=== PATIENT | female | born 1980 | race Caucasian/White ===

== ENCOUNTER 2016-08-28 18:42 | Inpatient (IN) ==
[2016-08-28] MEDS ORDERED: LR 1,000 ML IV SCH (19:30)
[2016-08-28] MEDS ORDERED: NS 1,000 ML IV ONE ×2 (19:38→20:56)
[2016-08-28] MEDS ORDERED: CITRIC ACID/SODIUM CITRATE 30ml PO ONE (19:53)
[2016-08-28] MEDS ORDERED: D5NS 1,000 ML IV SCH (21:47)
[2016-08-28] MEDS ORDERED: INSULIN REGULAR, HUMAN 100 UNIT in NS 100 ML IV PRN (22:04)
[2016-08-28] MEDS: ONDANSETRON 4 MG/2 ML INJECTION IVP PRN (22:45)
[2016-08-28] MEDS: D5NS IV SCH (23:56)
[2016-08-28] MEDS: POTASSIUM PHOSPHATE IV SCH (23:56)
[2016-08-28] MEDS: POTASSIUM CHLORIDE IV SCH (23:56)
--- NOTE | 2016-08-29 00:34 | History & Physical Report ---
History of Present Illness Date: 08/29/16 Chief complaint: Nausea & vomiting HPI: The pt is a 36 yo with a long history of medical noncompliance with her diabetes who presented to the ER c/o 2 weeks of nausea with intermetent vomiting but over the past 2 days the vomiting has become constant, not being able to keep and fluids down. She is 34 weeks with her third child and thus Dr. Bingham was notified of her condition in the ER. The patient explains to me that she stopped taking her insulin around 2 weeks ago due to poor PO intake and has not been checking her blood sugars regularly, but previously has been running >250. Her last A1C was 10.5, which is very good for her since she has been much higher in the past. Saw Dr. Pathak, endocrinology about 2-3 months ago. Review of Systems - Constitutional Constitutional: Present: anorexia, chills, fatigue, headache(s) - EENMT Eyes: Present: blurry vision, change in vision - Cardiovascular Cardiovascular: Absent: chest pain, palpitations, syncope, dyspnea on exertion - Respiratory Respiratory: Absent: cough, dyspnea, wheezing - Gastrointestinal Gastrointestinal: Present: abdominal pain, dyspepsia, early satiety. Absent: diarrhea - Genitourinary Genitourinary: Present: urinary frequency Menstruation: other - Musculoskeletal Musculoskeletal: Present: arthralgias, muscle cramps - Endocrine Endocrine: Present: flushing, heat intolerance PFS Patient Stated Medical History Diabetes Mellitus Type 1 Yes Herpes No Human Immunodeficiency Virus ( No HIV) Maternal Gestational Diabetes Yes Now Yes Surgical History: none Family History: 3 other family members with Diabetes. - Social History Smoking status: Current every day smoker Packs per day: 1 second hand exposure: Yes Substance use type: does not use Alcohol intake: former Medications Home Medications Medication Instructions Recorded Confirmed Type Insulin Glargine,Hum.rec.anlog 15 u SQ DAILY #0 02/12/12 History [Lantus] Insulin Lispro (Humalog) 5 u SQ AC #0 02/12/12 History Vits W-Ca,Fe,Fa(<1MG) 1 tab PO DAILY #0 02/12/12 History () Allergies Allergy/AdvReac Type Severity Reaction Status Date / Time medroxyprogesterone acetate Allergy Mild Uncoded 02/12/12 14:33 Exam Vital Signs: BP 133/75, HR 130, Temp- 37 Height: 1.6 m Weight: 80 kg Body Mass Index: 31.2 - Constitutional Present: moderate distress, well nourished - Routine Respiratory Exam Present: CTA bilaterally - Routine Cardiovascular Exam Present: RRR - Routine Abdominal Exam Present: soft Results - Labs CBC & Chem 7: 08/28/16 19:26 08/28/16 22:14 Assessment and Plan (1) DKA (diabetic ketoacidoses) Current visit: Yes Status: Acute 08/29/16 00:39 will start the pt on insulin continuous drip, monitor blood sugars Q1 hour, check BMP Q4, has received 3 liters of NS at this time, will transition to D51/ 2 NS as sugars decline, monitor K and electrolytes, The pt states she has been in DKA annually since diagnosis Assessment and Plan: 2. Dehydration- aggressive IVFluids, monitor closely, antiemetics. 3. - OB consulted and following closely, monitoring, 4. hx of STD Sepsis Assessment - Evaluation Sepsis screening result: No Definite Risk Hospital Course Summary Disclaimer: The visit summary below is not to be considered part of the above Progress Note.
[2016-08-29] MEDS: POTASSIUM PHOSPHATE IV SCH (07:03)
[2016-08-29] MEDS: POTASSIUM CHLORIDE IV SCH (07:03)
[2016-08-29] MEDS: D5NS IV SCH (07:03)
[2016-08-29] MEDS ORDERED: NS FLUSH BAG 500ml IV PRN (07:11)
[2016-08-29] MEDS ORDERED: INSULIN GLARGINE 100unit/ml INJECTION SQ ONE (08:01)
[2016-08-29] MEDS: ONDANSETRON 4 MG/2 ML INJECTION IVP PRN (09:55)
--- NOTE | 2016-08-29 11:50 | Progress Note ---
Subjective: Pt doing better this am. Denies any cp, f/c, sob. Reports mild nausea but is hungry and would like to try food. Objective Vital signs: Temp Pulse Resp BP Pulse Ox 98.6 F 84 18 114/62 96 08/29/16 09:00 08/29/16 09:15 08/29/16 09:15 08/29/16 09:15 08/29/16 09:15 Rhythm: Normal Sinus Rhythm Weight: 86.2 kg - Constitutional Present: no acute distress, well nourished - Routine Respiratory Exam Present: CTA bilaterally. Absent: respiratory distress - Routine Cardiovascular Exam Present: RRR, no murmur - Routine Abdominal Exam Present: soft, non tender - Routine Extremities Exam Present: edema. Absent: cyanosis, clubbing - Routine Skin Exam Present: intact, dry Results - Labs CBC & Chem 7: 08/28/16 19:26 08/29/16 06:59 Assessment and Plan (1) DKA (diabetic ketoacidoses) Current visit: Yes Status: Acute 08/29/16 00:39 will start the pt on insulin continuous drip, monitor blood sugars Q1 hour, check BMP Q4, has received 3 liters of NS at this time, will transition to D51/ 2 NS as sugars decline, monitor K and electrolytes, The pt states she has been in DKA annually since diagnosis Assessment and Plan: DKA -Likely 2/2 non-compliance, possibly made worse by n/v in -acidosis almost resolved, gap closed-->Will transition to subq insulin -Give lantus 20U this am and stop IV insulin and D5 in 2 hrs, will plan on taking lower dose of pt's home treciba tonight -Do 7-5-7 (instead of 10-8-10) novolog dosing WM -34 weeks, OB team following Sepsis Assessment - Evaluation Sepsis screening result: No Definite Risk - Focused Exam Vital Signs Temp Pulse Resp BP Pulse Ox 08/29/16 09:15 84 18 114/62 96 08/29/16 09:00 98.6 F 85 36 H 116/60 96 08/29/16 08:45 94 17 127/73 96 08/29/16 08:30 96 28 H 125/72 97 08/29/16 08:15 92 22 123/72 97 08/29/16 08:00 96 20 123/72 97 06/1717 07:45 103 H 26 H 120/65 97 17/17 07:30 107 H 17 128/76 97 17/17 07:15 86 19 120/65 94 17/17 07:00 80 21 119/66 95 17/17 06:45 87 19 118/70 95 17/17 06:40 88 21 116/73 95 17/17 06:30 93 19 95 17/17 06:15 93 38 H 96 17 06:00 96 20 17 05:45 110 H 24 123/69 97 17/17 05:30 95 18 119/66 93 08/29/17 05:15 92 18 94 1717 05:00 95 18 118/69 94 17/17 04:45 107 H 15 125/80 93 17 04:31 90 18 120/79 96 17 04:30 112 H 30 H 96 17 04:15 85 19 117/67 95 17 04:00 97.9 F 86 25 H 119/64 94 17/17 03:45 87 24 126/68 95 17/17 03:30 88 21 112/63 95 17/17 03:15 86 16 120/70 95 08/29/17 03:00 99 17 128/92 H 97 17 02:45 100 16 118/71 97 17/17 02:30 104 H 19 124/75 96 1717 02:15 97 15 124/80 98 17 02:00 100 17 149/75 H 97 1717 01:45 97 17 148/92 H 98 1717 01:30 89 21 121/58 95 17/17 01:29 87 20 119/56 95 17/17 01:15 93 20 95 17/17 01:03 100 17 01:00 97 16 96 1717 00:45 103 H 20 95 0617/17 00:30 104 H 19 94 17/17 00:15 101 H 19 94 1717 00:01 98 18 135/80 96 17 00:00 97.7 F 101 H 21 95 08/28/16 23:46 119 H 25 H 140/67 H 99 08/28/16 23:45 117 H 23 98 Respiratory exam: Present: CTA bilaterally Cardiovascular exam: Present: RRR Capillary refill: < 2-3 Seconds Hospital Course Summary Disclaimer: The visit summary below is not to be considered part of the above Progress Note. Hospital Course: 08/29/16 11:50 Pt admitted overnight for DKA, doing much better. Will transition to subq insulin and start diet. OB team following. Possibly discharge tomorrow.
[2016-08-29] MEDS ORDERED: CALCIUM CARBONATE Chewable 500mg TABLET PO PRN (11:54)
[2016-08-29] MEDS ORDERED: INSULIN ASPART 100unit/ml INJECTION SQ SCH ×5 (12:00→21:35)
[2016-08-29] MEDS ORDERED: POLYETHYL GLYCOL 3350 17gm PACKET PO PRN (12:23)
[2016-08-29] MEDS: OMEPRAZOLE 20 MG CAPSULE PO SCH ×2 (12:29→17:59)
[2016-08-29] MEDS: DOCUSATE SODIUM 100 MG CAPSULE PO SCH ×2 (12:29→22:32)
[2016-08-29] MEDS ORDERED: SALINE FLUSH 10ml SYRINGE IV PRN (12:41)
[2016-08-29] MEDS ORDERED: NS 1,000 ML IV SCH (12:54)
[2016-08-29] MEDS: SUCRALFATE 1gm/10ml ORAL LIQUID PO SCH ×2 (13:29→17:50)
[2016-08-29] MEDS ORDERED: TRESIBA FLEX TOUCH SQ SCH (22:00)
[2016-08-30] MEDS: SUCRALFATE 1gm/10ml ORAL LIQUID PO SCH ×2 (01:02→07:04)
[2016-08-30] MEDS: OMEPRAZOLE 20 MG CAPSULE PO SCH (07:02)
[2016-08-30] MEDS ORDERED: INSULIN ASPART 100unit/ml INJECTION SQ SCH ×2 (08:00)
--- NOTE | 2016-08-30 09:02 | Progress Note ---
Subjective: Pt doing well, reports she feels back to baseline. Denies any cp, sob, n/v/d, f/ c. Tolerating meals great. Objective Vital signs: Temp Pulse Resp BP Pulse Ox 98.7 F 80 18 126/78 96 08/30/16 07:00 08/30/16 07:00 08/30/16 07:00 08/30/16 07:00 08/29/16 21:48 Rhythm: Normal Sinus Rhythm Weight: 86.2 kg - Constitutional Present: no acute distress, well nourished - Routine HEENT Exam Head: Present: normocephalic, atraumatic Eye: Present: EOMI - Routine Respiratory Exam Present: CTA bilaterally - Routine Cardiovascular Exam Present: RRR, no murmur - Routine Abdominal Exam Present: soft, distended - Routine Extremities Exam Present: edema. Absent: cyanosis, clubbing - Routine Skin Exam Present: intact, dry - Routine Neurological Exam Present: alert, oriented X3 Results - Labs CBC & Chem 7: 08/30/16 04:39 08/30/16 04:39 Assessment and Plan (1) DKA (diabetic ketoacidoses) Current visit: Yes Status: Acute 08/29/16 00:39 will start the pt on insulin continuous drip, monitor blood sugars Q1 hour, check BMP Q4, has received 3 liters of NS at this time, will transition to D51/ 2 NS as sugars decline, monitor K and electrolytes, The pt states she has been in DKA annually since diagnosis Assessment and Plan: DKA -Resolved -Likely 2/2 non-compliance, possibly made worse by n/v in -tolerating PO intake well, subq transition went well -Ok to discharge from medicine standpoint, would recommend going home on home regimen of insulin that pt was on before -Advised pt to monitor glucose levels closely and to always take some long acting insulin even if she is not eating as she is type I and needs basal insulin -34 weeks, OB team following Sepsis Assessment - Evaluation Sepsis screening result: No Definite Risk - Focused Exam Vital Signs Temp Pulse Resp BP Pulse Ox 08/30/16 07:00 98.7 F 80 18 126/78 08/29/16 21:48 97.6 F 78 18 122/67 96 Respiratory exam: Present: CTA bilaterally Cardiovascular exam: Present: RRR Capillary refill: < 2-3 Seconds Hospital Course Summary Disclaimer: The visit summary below is not to be considered part of the above Progress Note. Hospital Course: 08/29/16 11:50 Pt admitted overnight for DKA, doing much better. Will transition to subq insulin and start diet. OB team following. Possibly discharge tomorrow. 08/30/16 09:02 Pt doing well, ok to discharge from medicine standpoint. Pt can resume home dose of insulin when she leaves.
--- NOTE | 2016-08-30 10:52 | Discharge Summary ---
Discharge Plan - Med Rec/Dispo Prescriptions: New Docusate Sodium [Colace] 100 mg PO BID #30 cap Sucralfate Oral Liq [Carafate Slurry] 1 gm PO ACHS #20 CALCIUM CARBONATE Chewable [Tums] 1,000 mg PO PRN PRN PRN Reason: Dyspepsia Insulin Aspart [NovoLOG] 5 unit SQ WB vial Continue Insulin Degludec [Tresiba Flextouch U-200] 40 units SQ HS Pnv No.95/Ferrous Fum/Folic AC [ Tablet] 1 each PO DAILY No Action Insulin Aspart [NovoLOG] 10 units SQ AC15 Acetaminophen [Acetaminophen Extra Strength] 500 mg PO PRN - Disposition 01 Discharged Home, Self-Care
--- NOTE | 2016-08-31 08:02 | Progress Note ---
This is a 36-year-old white female G6, P2, at 34.3 weeks gestational age. She is a known insulin-dependent diabetic who has been seeing Dr. Powell for care. She called me earlier this evening stating that she had not felt the baby move for two days. She also has not been able to keep anything down and is having nausea and vomiting for the last two days. She denied any fever. I asked her to immediately come in to Labor and Delivery to be evaluated. Upon her arrival I asked the charge nurse to immediately put her on the monitor and give me an Accu-Chek. I was outside the hospital but remoted in and saw the screen before the charge nurse had called me, so I called the nurse and found out her blood sugar was 301, so I headed towards the hospital. We started an IV and ordered a CMP, CBC, hemoglobin A1c, and a UA. I attempted to get hold of Dr. Pathak twice, and after the second page he called me back. He is unavailable to come up to manage the patient this evening but gave me some starting orders. I consulted the hospitalist. Since it was after 7 p.m., the hospitalist will now be involved. I talked to one of them personally on the phone and gave the history I had so far of them. My concern is DKA. The CO2 came back low at 10 and anion gap is high at 22, so I think this confirms a DKA scenario. Initially I had them get an IV going with LR, which is our usual but I did not bolus that. She just got a little of that before I switched to normal saline with the advice of Dr. Pathak and we are bolusing that. That is currently in place. CBC is still pending at this point in time. heart tones initially were nonreactive and with decreased variability, but they are improving with the fluids. The hospitalist has been consulted and is supposed to be reviewing her lab, and then we will be calling in to doctor. Further history with the patient tells me that she has not seen Dr. Pathak, the system integration engineer, in two months. She also cannot eat, sleep, or drink. I told the patient then that I think she is in DKA. She will certainly be spending some time in the hospital until we can get things straightened around on her. Questions were answered to her and her mother's satisfaction at this point in time. MTDD
--- NOTE | 2016-08-31 08:14 | Progress Note ---
Patient is currently in the ICU room 5. She is on continuous monitoring. Her most recent blood sugar at 2200 hours was 208. The hospitalist now has access to the chart and is able to put in electronic orders. She has been on an insulin drip of 5. It has been decreased to 4. She has received 2 liters of normal saline in a fairly bolus fashion and now has been switched to D5 normal saline at 150cc/hour. Her nausea has improved but is not completely resolved. She has voided once and urine showed 3+ ketones, 2+ sugar, and trace protein. Specific gravity is high. This is all consistent with dehydration, no p.o. intake for several days, and ketoacidosis with sugars as high as they were. So her blood sugars come from 326 down to 208. heart tones-- contractions have dissipated and late's have resolved. There is good variability now. I have audibly heard movements. We have her on continuous monitoring in the ICU, but that does not go to central monitoring so we cannot see it anywhere other than on the monitor strip that is being produced. Therefore, we have placed a Maternal Child nurse sitting in the ICU room to monitor heart tones and make sure that the baby stays stable. There is also an ICU nurse running her other issues. The tele-hospitalist is running the DKA, and I will continue to manage the . At this point, I think we are stable enough that emergent is much less likely. Things have improved markedly after 2 liters of normal saline. We will continue to closely monitor however. Questions were answered to the patient's satisfaction. She was asking about her hemoglobin A1c, and it was 10.0. She says their goal was 8.0. The hospitalist is status doing metabolic profiles every four hours, so that will be coming up soon. RODOLFO
--- NOTE | 2016-08-31 08:16 | Progress Note ---
DATE: 08/30/2016 This in an OB patient of Dr. Powell who was admitted two days ago in A. She is doing much better today and desires dismissal. The hospitalist feels that she can be dismissed from the medical standpoint. NST this morning is reactive. I saw the patient twice yesterday in the ICU and gave her additional IV fluids yesterday, but she was looking much improved yesterday and she came out to the floor yesterday afternoon and then this morning looks great. She is eating and drinking okay. She is voiding better than she has been although her urine is still dark. She is still having some swelling in her feet but her legs have resolved in her swelling. Her vital signs are stable. She is afebrile. Her blood sugars have improved markedly. Today they are 196, but yesterday during the day they were 114, 124 and 183 and last night was 241. So the patient desires to be discharged to home today and I will work to make that happen. She has a followup appointment tomorrow in our office. I will also dictate a discharge summary. RODOLFO
--- NOTE | 2016-08-31 10:30 | Discharge Summary ---
This is a 36-year-old white female in third trimester is known type 1 insulin dependent diabetic. She has been seeing Dr. Powell for the and a repeat was planned. She called me Wednesday afternoon complaining of nausea, vomiting, and not eating or drinking or sleeping for the past several days. She also hadn't felt the baby move for two days. I asked her to immediately come to Labor and Delivery. When she showed up, she was found to be in diabetic ketoacidosis. Blood sugar was 326. Lab was consistent with DKA as well. Her anion gap was 22 and her carbon dioxide was 10. Normal saline fluid boluses were started and Dr. Pathak was contacted by phone. He is her medical oncologist, but she has not seen him in over 2-1/2 months. He gave me some initial orders to start with but he was unavailable to come in this weekend , so I consulted the hospitalist. It was after 7:00 p.m., so tele-hospitals were consulted. Insulin drip was started. We transferred the patient to ICU. The patient spent Wednesday night in the ICU on an insulin drip with hourly blood sugars, lab q 4 hrs and DKA protocol. heart tones initially were nonreactive with late decelerations on admission. They improved some with hydration but would occasionally go back to non-reassuring. I made the decision to wait until we could resuscitate the mother and not move towards immediately delivering since we were a 34-1/2-week situation. Eventually heart tones became reactive when we got the mother's blood sugar down and her hydration up. They have remained reactive through discharge. Today from the hospitalist standpoint, they were ready to discharge to home. The patient also had bad gastric reflux and we have controlled that with Prilosec and Carafate. Will continue those. She has an appointment in our office tomorrow for a biophysical profile. Her delivery is scheduled for September 16 at this point in time. Questions were answered to her and her mother's satisfaction. The hospitalists have asked that she keep on her same insulin regimen that she had prior but to keep hydrated and to let us know sooner if she stops eating or drinking. She is to follow up with Dr. Pathak. Questions were answered to everyone's satisfaction. We have a followup appointment for tomorrow. heart tones were reactive and we are dismissing to home. MTDD
== END 2016-08-30 11:12 | disposition home or self-care (01) | DRG 638 ==
LOC: OBOBS 18:42 → MC 18:43 → CCU 20:52 → MC 08-29 16:15
PROVIDERS: ADMIT Obstetrics & Gynecology; ATTEND Obstetrics & Gynecology

== ENCOUNTER 2016-09-16 05:35 | Inpatient (IN) ==
[2016-09-16] MEDS ORDERED: NOZIN NASAL SWAB NAS ONE ×2 (05:49→09:00)
[2016-09-16] MEDS: LR 1,000 ML IV SCH ×2 (06:13→07:38)
[2016-09-16] MEDS ORDERED: FAMOTIDINE PB 20 MG/50 ML BAG IV ONE (06:30)
--- NOTE | 2016-09-16 06:54 | Anesthesia Preoperative Report ---
Anesthesia Preoperative Record - Date and Time Date: 09/16/16 Preoperative Diagnosis: High risk O09.893 Proposed Procedure: Repeat NPO Since Date: 09/16/16 NPO Since Time: 05:00 (6 oz Coffee without cream/sugar) Allergies/Adverse Reactions: Allergies Allergy/AdvReac Type Severity Reaction Status Date / Time No Known Drug Allergies Allergy Verified 08/29/16 08:45 medroxyprogesterone AdvReac Intermediate Bleeding Verified 08/29/16 08:45 - Vital Signs Vital Signs: Temperature 97.4 F 09/16/16 06:17 Pulse Rate 93 09/16/16 06:17 Respiratory Rate 18 09/16/16 06:17 Blood Pressure 140/97 H 09/16/16 06:17 Pulse Oximetry 97 09/16/16 06:17 Oxygen Delivery Method Room Air Height and Weight: Height 5 ft 3 in Weight 88.451 kg - Medications Inpatient Medications: Current Medications Citric Acid/Sodium Citrate (Oracit) 30 ml PO PREOP ONE Stop: 09/16/16 07:01 Cefazolin Sodium/Dextrose (Kefzol Premix (Mc Only)) 2 gm in 50 mls @ 100 mls/ hr IV PREOP ONE Stop: 09/16/16 07:29 Famotidine/Sodium Chloride (Pepcid Premix) 20 mg in 50 mls @ 100 mls/hr IV PREOP ONE Stop: 09/16/16 06:59 Last Admin: 09/16/16 06:14 Dose: 100 mls/hr Lactated Ringer's (Lactated Ringers) 1,000 mls @ 150 mls/hr IV .[id number] [facility] Last Admin: 09/16/16 06:13 Dose: 150 mls/hr Isopropyl Alcohol (Nozin Nasal Swab) 1 each OCHOA O ONE Stop: 09/16/16 09:01 Isopropyl Alcohol (Nozin Nasal Swab) 1 each OCHOA 0600,1400,2200 [facility] Home Medications: Home Medications Medication Instructions Recorded Confirmed Type Acetaminophen [Acetaminophen Extra 500 mg PO PRN 08/29/16 08/29/16 History Strength] Insulin Aspart [NovoLOG] 10 units SQ AC15 08/29/16 08/29/16 History Insulin Degludec [Tresiba 40 units SQ HS 08/29/16 08/29/16 History Flextouch U-200] Pnv No.95/Ferrous Fum/Folic AC 1 each PO DAILY 08/29/16 08/29/16 History [ Tablet] - Medical History Respiratory: Reports: Bronchitis (chronic), Other (smoker) Cardiovascular: Reports: Other (heart surgery as a baby. does not see a internal control analyst now. no problems) Gastrointestional: Reports: Nausea or Vomiting Present (nauseous currently), Gastroesophageal Reflux Disease (when ) Neuro/Musculoskeletal: Denies: HX.MS.OSAR, Back Problems, Cerebrovascular Accident, Depression, Headaches, Loss of Consciousness, Muscle Weakness, Neuromuscular Disorder, Paralysis, Paresthesia, Syncope, Seizures, Other Renal/Endocrine: Reports: Diabetes Mellitus Type 1 (chronic. 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") Other History: Reports: Now - Surgical History Reproductive Surgery/Treatment: Reports: Breast Augmentation/Reduction ( reduction 2008), Section - Social History Smoking Status: Current every day smoker (0.5-1PPD x 15+ yrs) Time spent discussing smoking cessation with patient: 3 to 10 minutes Substance Use Type: does not use - Pertinent Findings Laboratory: CBC and BMP 09/16/16 06:15 EKG Rhythm: Normal Sinus Rhythm - Physical Exam Respiratory Exam: Present: lungs clear (left lung), wheezing (Right lower lobe) , bilateral breath sounds equal Cardiovascular Exam: Present: regular rate and rhythm, no murmur - Airway Assessment Mallampati Score: II TMD: 3 Fingerbreadths Neck Extension: fair Teeth: poor dentation Overall Assessment: may be difficult intubation - ASA ASA Score: 3 - Plan Anesthesia: Neuroaxial Regional/Trunk Block: Spinal - Discussion Discussion: Discussed risks/options/alternatives of anesthesia and questions answered. Patient consents. Nursing pain assessment noted. Present for Discussion: parent Attestation Statement: Prior to the delivery of any anesthetic medication, I examined the patient, developed the plan, obtained the patient's consent and discussed the risk and benefits of the procedure with the patient/guardian. - Additional Information Seen by Anesthesia: Yes
[2016-09-16] MEDS ORDERED: NALOXONE 2 MG/2 ML INJECTION PFS IVP PRN (06:59)
[2016-09-16] MEDS ORDERED: ONDANSETRON 4 MG/2 ML INJECTION IVP PRN (06:59)
[2016-09-16] MEDS ORDERED: DiphenhydrAMINE 50 MG/ML INJECTION IVP PRN (06:59)
--- NOTE | 2016-09-16 06:59 | Anesthesia Preoperative Report ---
Anesthesia Epidural/Spinal Rec - Date and Time Date: 09/16/16 Preoperative Diagnosis: term labor/IDDM Procedure: Plan: Spinal - Vital Signs Vital Signs: Temperature 97.4 F 09/16/16 06:17 Pulse Rate 93 09/16/16 06:17 Respiratory Rate 18 09/16/16 06:17 Blood Pressure 140/97 H 09/16/16 06:17 Pulse Oximetry 97 09/16/16 06:17 Oxygen Delivery Method Room Air NPO since: 0500, 6oz black coffee /Para: P:2 Heart Rate: 130 - Medictaions & Allergies Inpatient Medications: Current Medications Citric Acid/Sodium Citrate (Oracit) 30 ml PO PREOP ONE Stop: 09/16/16 07:01 Cefazolin Sodium/Dextrose (Kefzol Premix (Mc Only)) 2 gm in 50 mls @ 100 mls/ hr IV PREOP ONE Stop: 09/16/16 07:29 Famotidine/Sodium Chloride (Pepcid Premix) 20 mg in 50 mls @ 100 mls/hr IV PREOP ONE Stop: 09/16/16 06:59 Last Admin: 09/16/16 06:14 Dose: 100 mls/hr Lactated Ringer's (Lactated Ringers) 1,000 mls @ 150 mls/hr IV .Q6H40M SURENDRA Last Admin: 09/16/16 06:13 Dose: 150 mls/hr Isopropyl Alcohol (Nozin Nasal Swab) 1 each OCHOA O ONE Stop: 09/16/16 09:01 Isopropyl Alcohol (Nozin Nasal Swab) 1 each OCHOA 0600,1400,2200 [facility] Allergies/Adverse Reactions: Allergies Allergy/AdvReac Type Severity Reaction Status Date / Time No Known Drug Allergies Allergy Verified 08/29/16 08:45 medroxyprogesterone AdvReac Intermediate Bleeding Verified 08/29/16 08:45 - Home Medications Home Medications: Home Medications Medication Instructions Recorded Confirmed Type Acetaminophen [Acetaminophen Extra 500 mg PO PRN 08/29/16 08/29/16 History Strength] Insulin Aspart [NovoLOG] 10 units SQ AC15 08/29/16 08/29/16 History Insulin Degludec [Tresiba 40 units SQ HS 08/29/16 08/29/16 History Flextouch U-200] Pnv No.95/Ferrous Fum/Folic AC 1 each PO DAILY 08/29/16 08/29/16 History [ Tablet] - Medical History Respiratory: Reports: Bronchitis (chronic), Other (smoker) Cardiovascular: Reports: Hypertension, Other (valve problem as a , fixed. 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) Other History: Reports: Now - Social History Smoking Status: Current every day smoker Second Hand Exposure: Yes Time spent discussing smoking cessation with patient: 3 to 10 minutes Substance Use Type: does not use - Pertinent Findings Lab Data: CBC and BMP 09/16/16 06:15 EKG Rhythm: Normal Sinus Rhythm - Physical Exam Respiratory Exam: lungs clear (left lung), wheezing (Right lower lobe), bilateral breath sounds equal Cardiovascular Exam: regular rate and rhythm, no murmur - Airway Assessment Mallampati Score: II TMD: 3 Fingerbreadths Neck Extension: fair Teeth: poor dentation Overall Assessment: may be difficult intubation - ASA ASA Score: 3 - Discussion Discussion: Discussed risks/options/alternatives of anesthesia and questions answered. Patient consents. Nursing pain assessment noted. Anesthesia Discussion: parent Attestation Statement: Prior to the delivery of any anesthetic medication, I examined the patient, developed the plan, obtained the patient's consent and discussed the risk and benefits of the procedure with the patient/guardian.
[2016-09-16] MEDS ORDERED: CITRIC ACID/SODIUM CITRATE 30ml PO ONE (07:00)
[2016-09-16] MEDS ORDERED: CEFAZOLIN PREMIX (MC ONLY) 2 GM/50 ML BAG IV ONE (07:00)
[2016-09-16] MEDS ORDERED: MORPHINE SULFATE PF 5mg/10ml INJ (Duramorph) ONE (07:05)
[2016-09-16] MEDS ORDERED: FentaNYL 100 MCG/2 ML INJECTION ONE (07:05)
[2016-09-16] MEDS ORDERED: OXYTOCIN DRIP 30 UNIT/500 ML ML IV SCH ×2 (07:45→09:00)
[2016-09-16] MEDS ORDERED: ONDANSETRON 4 MG/2 ML INJECTION ONE (08:26)
[2016-09-16] MEDS ORDERED: SALINE FLUSH 10ml SYRINGE IVF PRN (09:00)
[2016-09-16] MEDS ORDERED: SIMETHICONE 80 MG CHEWABLE TABLET PO PRN (09:00)
[2016-09-16] MEDS ORDERED: DiphenhydrAMINE 25 MG CAPSULE PO PRN (09:00)
[2016-09-16] MEDS ORDERED: HYDROCORTISONE 2.5% CREAM 30gm RECTALLY PRN (09:00)
[2016-09-16] MEDS ORDERED: CALCIUM CARBONATE Chewable 500mg TABLET PO PRN (09:00)
[2016-09-16] MEDS: D5LR 1,000 ML IV SCH ×2 (09:02→21:56)
[2016-09-16] MEDS: ACETAMINOPHEN 500 MG TABLET PO PRN ×2 (10:38→19:29)
[2016-09-16] MEDS: IBUPROFEN 800 MG TABLET PO SCH ×3 (10:38→19:29)
[2016-09-16] MEDS: DOCUSATE CALCIUM 240 MG CAPSULE PO SCH (10:39)
[2016-09-16] MEDS: SIMETHICONE 80 MG CHEWABLE TABLET PO SCH ×3 (10:40→19:30)
[2016-09-16] MEDS ORDERED: INSULIN ASPART 100unit/ml INJECTION SQ SCH ×2 (12:55→17:00)
[2016-09-16] MEDS ORDERED: NOZIN NASAL SWAB NAS SCH (14:00)
--- NOTE | 2016-09-16 14:47 | Operative Note ---
DATE OF PROCEDURE 09/16/2016 PREOPERATIVE DIAGNOSIS 1. Term . 2. Previous x 1. 3. Undesired fertility. 4. Type 1 insulin dependent diabetes. 5. Polyhydramnios. 6. LGA. POSTOPERATIVE DIAGNOSIS Same, delivered. PROCEDURE Repeat low transverse section, bilateral tubal ligation (modified Bessie). SURGEON Sherry Powell MD [employer] Aaron León, [employer] ANESTHESIA Combo spinal-epidural - Piyush Skelton APRN EBL 800 ml DESCRIPTION OF PROCEDURE Ms. Pace was brought to the OR and given regional analgesia to good effect. She was then placed on the OR table in a comfortable supine position with left lateral displacement. A Johnson catheter was placed to dependent drain. The abdomen was prepped and draped in the usual sterile fashion. A Pfannenstiel still skin incision was made. This was carried down to fascia. Fascia was then incised transversely. Fascia was then tented up. It was bluntly and sharply dissected free of the rectus muscles. Rectus muscles were bluntly divided. Peritoneum was tented up and sharply entered. This was then extended vertically. The bladder blade was inserted. The vesicouterine fold of peritoneum was tented up and incised transversely and a bladder flap bluntly created. The bladder blade was then reinserted. A low transverse uterine incision was made with a sharp knife. There was copious clear amniotic fluid consistent with her polyhydramnios. Baby was delivered in the vertex presentation without difficulty. Baby was bulb suctioned on abdomen. Cord was doubly clamped and cut. Baby was given to Dr. Rivas and her team for care. This is a liveborn female weighing 9 pounds, 5.8 ounces, Apgars of 7/8/9. The placenta was then expressed intact. It had a normal configuration and normal- appearing three-vessel cord. The uterine cavity was swept clear of membranes and the uterus was exteriorized. The myometrial incision was reapproximated with a running locking 0 Monocryl. It was carefully observed and found to be hemostatic, so we turned our attention to the tubal ligation. The right fallopian tube was then visualized to its fimbria. It was grasped near the midpoint with a Northridge clamp. A free tie of 2-0 chromic was placed around this knuckle of tube. The mesosalpinx was then pierced with a clamp and two simple ligatures of 2-0 silk were ligated just above the previous chromic. We then cut the section of tube off and sent it to the pathologist for inspection. Stumps were carefully observed and found to be hemostatic. We then repeated the procedure in the exact same fashion on the left fallopian tube, again making sure hemostasis remained under good control as we did throughout the procedure. We reinspected our myometrial incision. It was hemostatic. We removed gross blood clots from the abdomen. We then returned the uterus, tubes and ovaries to the abdominal cavity. Peritoneum was then reapproximated with a running nonlocking 2-0 Vicryl. Fascia was reapproximated with a running nonlocking 0 Vicryl. Skin edges were reapproximated with subcuticular style 3- 0 undyed Vicryl. The wound was dressed with Steri-Strips and a sterile dressing. Counts were correct postoperatively x 2. The urine remained clear and free flowing throughout the procedure. Ms. Pace was then transferred to recovery in stable condition. The baby is in the nursery and doing well. RODOLFO
--- NOTE | 2016-09-16 15:41 | Anesthesia Postoperative Note ---
- Date and Time Date: 09/16/16 Time: 15:40 - Status Patient Participated in Evaluation: Patient Participated in Person Vital Signs: Temperature 97.4 F 09/16/16 06:17 Pulse Rate 93 09/16/16 06:17 Respiratory Rate 18 09/16/16 06:17 Blood Pressure 140/97 H 09/16/16 06:17 Pulse Oximetry 97 09/16/16 06:17 Oxygen Delivery Method Room Air Respiratory Function: Airway Patent Cardiovascular Function: Regular Pulse EKG Rhythm: Normal Sinus Rhythm Mental Status: Alert and Oriented Hydration: Taking PO Fluids Complications During Recover: None Apparent - Follow-Up Instructions Instructions: Per Surgeon
--- NOTE | 2016-09-16 16:37 | Consultation ---
DATE OF CONSULT 09/16/2016 REASON FOR CONSULTATION Type 1 diabetes mellitus. HISTORY OF PRESENT ILLNESS The patient was admitted early this morning for elective . She is known to have had type 1 diabetes mellitus since May 2011. Recently she has been in fair control with blood sugars in the low to mid 100s while taking Tresiba 40 units at bedtime and NovoLog 10 units for breakfast and supper and 8 units for lunch. She did have some trouble about two weeks ago with a very mild case of diabetic ketoacidosis that resolved rapidly and required one overnight stay. She has had no recent hypoglycemia since her lunch dose was reduced from 10 to 8 units at that time. She delivered by this morning and is currently feeling well with good appetite and intention to eat a late lunch. She did have her Tresiba last night. ALLERGIES DEPO-PROVERA. PAST MEDICAL HISTORY Remarkable for: 1. Type 1 diabetes mellitus. 2. Hyperlipidemia. 3. Migraine headaches. 4. Status post heart and lung surgery at . 5. Breast reduction in 2008. 6. in 2011. FAMILY HISTORY Noncontributory. SOCIAL HISTORY The patient smokes one-half to one pack per day and has no intention of quitting smoking. She does not drink alcohol. She gets regular exercise six days a week. REVIEW OF SYSTEMS Otherwise contributory only for development of some worsening painful peripheral neuropathy recently. PHYSICAL EXAM VITALS: Afebrile with vital signs stable. GENERAL: Alert, oriented and in no acute distress. HEENT: Unremarkable. NECK: Without thyromegaly. No bruits. LUNGS: Clear. HEART: Regular rate and rhythm. ABDOMEN: Normal bowel sounds. EXTREMITIES: Without edema. NEUROLOGIC: Exam reveals diminished light touch sensation in right foot. LABS Fasting glucose was 95 this morning and before lunch was 183. ASSESSMENT 1. Type 1 diabetes mellitus with hyperglycemia. She should have lower insulin requirements now that she has delivered. In order to avoid hypoglycemia, we will taper her NovoLog for meals. 2. Long-term use of insulin. 3. Peripheral neuropathy. RECOMMENDATIONS 1. Continue same Tresiba. Reduce NovoLog to 8 units for breakfast and supper and 6 units for lunch and follow glucose levels to titrate to good control. 2. Consider starting Metanx for painful neuropathy as this would be safe to use while breast-feeding. 3. Start on SPENSER inhibitor for renal protection. This will be important since she has had proteinuria. Thank you very much for asking me to assist in caring for this nice young woman. I will follow her along with you while she remains in the hospital. RODOLFO
--- NOTE | 2016-09-16 17:09 | Progress Note ---
OB PP Progress Note Free Text - Date Date: 09/16/16 - Progress Note Progress Note: Pt reports good pain control. Would like to walk. AVSS BP 126/80 Abd-dressing intact, dry, NT Stable IDDM management per Dr Pathak Q&A
[2016-09-16] MEDS ORDERED: INSULIN DEGLUDEC U PO SCH (22:00)
[2016-09-17] MEDS: SIMETHICONE 80 MG CHEWABLE TABLET PO SCH ×6 (02:20→22:06)
[2016-09-17] MEDS: IBUPROFEN 800 MG TABLET PO SCH ×5 (02:21→19:29)
[2016-09-17] MEDS: ACETAMINOPHEN 500 MG TABLET PO PRN ×3 (02:57→11:34)
[2016-09-17] MEDS ORDERED: INSULIN ASPART 100unit/ml INJECTION SQ SCH ×4 (06:30→11:30)
--- NOTE | 2016-09-17 07:59 | OB/GYN Progress Note ---
OB-PP Progress Note - General POD:: POD1 - Subjective Date: 09/17/16 Lochia: Moderate Pain: contolled Voiding: fernández still in place Nausea or Vomiting Present: No - Objective Vital Signs: Last Vital Signs Temp 97.8 F 09/17/16 04:05 Pulse 70 09/17/16 04:05 Resp 12 09/17/16 04:05 BP 145/95 H 09/17/16 04:05 Pulse Ox 96 09/17/16 00:04 Urine Output: good General: alert and oriented Abdomen: fundus firm Incision: normal, intact Extremities: non-tender Edema: none Laboratory: Laboratory Results - last 24 hr 09/16/16 09/16/16 09/16/16 17:32 22:10 22:48 WBC RBC Hgb Hct MCV MCH MCHC RDW Std Deviation Plt Count MPV Immature Gran % (Auto) Neut % (Auto) Lymph % (Auto) Dickenson % (Auto) Eos % (Auto) Baso % (Auto) Neut # Lymph # Dickenson # Eos # Baso # Abs Immat Gran (auto) Glucometer 140 46 93 09/17/16 09/17/16 00:03 05:46 WBC 8.6 RBC 4.17 Hgb 11.1 L Hct 34.1 L MCV 81.8 MCH 26.6 MCHC 32.6 RDW Std Deviation 37.1 Plt Count 238 MPV 10.2 Immature Gran % (Auto) 0.2 Neut % (Auto) 76.4 H Lymph % (Auto) 17.8 L Dickenson % (Auto) 4.9 Eos % (Auto) 0.6 Baso % (Auto) 0.1 Neut # 6.6 Lymph # 1.5 Dickenson # 0.4 Eos # 0.1 Baso # 0.0 Abs Immat Gran (auto) 0.02 Glucometer 117 - Assessment Assessment: Repeat C/S, Tubal Ligation - Plan Plan: routine care (Dr. Pathak seeing patient regarding her diabetes. )
--- NOTE | 2016-09-17 08:11 | Endocrinology Progress Note ---
Progress Note-A&P (1) Type 1 diabetes mellitus Status: Acute Assessment and plan: Laboratory Tests 09/16/16 09/16/16 09/16/16 17:32 22:10 22:48 Glucometer 140 46 93 09/17/16 00:03 Glucometer 117 Will need to taper insulin another 20% today, both bolus and basal (FBS is 47). Will also check A1c. Current Visit: Yes - Time Spent With Patient Total time spent is greater than 50% in coordination of care (as documented) at patient's floor/unit and/or counseling patient: 25 - 35 minutes Subjective Principal diagnosis: Diabetes mellitus type 1 Interval history: Had hypoglycemia last night and fasting this morning despite tapering meal insulin and basal insulin by 20%. Unaware of blood sugars in the 40's. Exam Vital signs: Temperature 97.8 F 09/17/16 04:05 Pulse Rate 70 09/17/16 04:05 Respiratory Rate 12 09/17/16 04:05 Blood Pressure 145/95 H 09/17/16 04:05 Pulse Oximetry 96 09/17/16 00:04 Oxygen Delivery Method Room Air - Constitutional no acute distress, well nourished, well developed - Routine HEENT Exam Head: Present: normocephalic, atraumatic - Routine Neck Exam Absent: thyromegaly - Routine Respiratory Exam Absent: rales, wheezes - Routine Cardiovascular Exam Present: RRR. Absent: murmur - Routine Abdominal Exam Present: normoactive bowel sounds - Routine Extremities Exam Absent: edema - Routine Skin Exam Present: dry, warm - Routine Neurological Exam Present: moving all extremities, normal speech - Routine Psychiatric Exam Present: normal affect, normal thought process - Urinary Catheter Management Urethral Cath placed during this visit: yes Urethral indwelling: No Insertion date: 09/16/16 Insertion time: 07:30
[2016-09-17] MEDS: DOCUSATE CALCIUM 240 MG CAPSULE PO SCH (08:22)
[2016-09-17] MEDS: LISINOPRIL 10 MG TABLET PO SCH (08:22)
[2016-09-17] MEDS: INSULIN ASPART 100unit/ml INJECTION SQ SCH ×3 (09:52→17:52)
[2016-09-17] MEDS: HYDROCODONE/APAP 5mg/325mg TABLET PO PRN ×2 (17:52→21:41)
[2016-09-17] MEDS ORDERED: Insulin Degludec [Tresiba Flextouch U-200] PO SCH (22:00)
[2016-09-17] MEDS ORDERED: INSULIN DEGLUDEC 32 UNIT PO SCH (22:00)
[2016-09-18] MEDS: HYDROCODONE/APAP 5mg/325mg TABLET PO PRN ×5 (03:30→23:47)
[2016-09-18] MEDS: IBUPROFEN 800 MG TABLET PO SCH ×3 (03:31→20:06)
[2016-09-18] MEDS: DOCUSATE CALCIUM 240 MG CAPSULE PO SCH ×2 (07:32→13:14)
[2016-09-18] MEDS: LISINOPRIL 10 MG TABLET PO SCH ×2 (07:33→13:14)
[2016-09-18] MEDS ORDERED: INSULIN DEGLUDEC 26 UNIT PO SCH (07:41)
--- NOTE | 2016-09-18 07:59 | Endocrinology Progress Note ---
Progress Note-A&P (1) Type 1 diabetes mellitus Status: Acute Assessment and plan: Still hypoglycemic this morning after tapering Tresiba another 20 % last night. Will continue to taper down to just 26 units tonight (was at 40 units when admitted to hospital). Will also halve the breakfast Novolog this morning in attempt to avoid the noon hypoglycemia that occured yesterday. Advised patient to phone me over the next week to have further adjustments made and to call to make an appointment in 3-4 weeks. Current Visit: Yes - Time Spent With Patient Total time spent is greater than 50% in coordination of care (as documented) at patient's floor/unit and/or counseling patient: less than 15 minutes (labs reviewed and discussed, orders changed) Subjective Principal diagnosis: Diabetes mellitus type 1 Interval history: Had hypoglycemia recur before lunch and again fasting this morning despite tapering meal insulin and basal insulin by another 20%. Unaware of blood sugars in the 40's. Exam Vital signs: Temperature 97.6 F 09/18/16 03:35 Pulse Rate 70 09/18/16 03:35 Respiratory Rate 16 09/18/16 03:35 Blood Pressure 135/86 09/18/16 03:35 Pulse Oximetry 97 09/17/16 08:20 Oxygen Delivery Method Room Air - Constitutional no acute distress, well developed - Routine HEENT Exam Head: Present: normocephalic, atraumatic - Routine Neck Exam Absent: thyromegaly - Routine Respiratory Exam Absent: wheezes - Routine Cardiovascular Exam Present: RRR - Routine Abdominal Exam Present: soft, normoactive bowel sounds - Routine Extremities Exam Present: no edema - Routine Neurological Exam Present: alert, oriented X3, normal speech - Routine Psychiatric Exam Present: normal affect - Additional findings Additional findings: Laboratory Tests 09/17/16 09/17/16 09/17/16 12:12 17:51 21:33 Glucometer 47 140 141 09/18/16 07:17 Glucometer 40 - Urinary Catheter Management Urethral Cath placed during this visit: yes, but has since been removed by the nurse Urethral indwelling: No Insertion date: 09/16/16 Insertion time: 07:30 Removal date: 09/17/16 Removal time: 08:30
[2016-09-18] MEDS ORDERED: INSULIN ASPART 100unit/ml INJECTION SQ ONE (08:00)
[2016-09-18] MEDS: INSULIN ASPART 100unit/ml INJECTION SQ SCH ×3 (08:30→17:19)
--- NOTE | 2016-09-18 10:01 | OB/GYN Progress Note ---
OB-PP Progress Note - General PPD2 - Subjective Date: 09/18/16 Lochia: Minimal Pain: contolled Voiding: voiding Nausea or Vomiting Present: No - Objective Vital Signs: Last Vital Signs Temp 97.6 F 09/18/16 03:35 Pulse 75 09/18/16 07:25 Resp 16 09/18/16 07:25 BP 145/101 H 09/18/16 07:25 Pulse Ox 96 09/18/16 07:25 Urine Output: good General: alert and oriented Abdomen: fundus firm, non-tender Incision: normal Side: bilateral Site: ankle Edema Degree: 1+ Laboratory: Laboratory Results - last 24 hr 09/17/16 09/17/16 09/17/16 08:01 12:12 17:51 Glucometer 47 47 140 09/17/16 09/18/16 09/18/16 21:33 07:17 07:47 Glucometer 141 40 79 - Assessment Assessment: SP, Repeat C/S, Tubal Ligation Comments: BP after Lisinopril 135/77
[2016-09-18] MEDS: SIMETHICONE 80 MG CHEWABLE TABLET PO SCH ×3 (11:35→17:18)
[2016-09-19] MEDS: INSULIN ASPART 100unit/ml INJECTION SQ SCH ×3 (01:48→13:09)
[2016-09-19] MEDS: SIMETHICONE 80 MG CHEWABLE TABLET PO SCH ×3 (01:48→13:07)
[2016-09-19] MEDS: IBUPROFEN 800 MG TABLET PO SCH ×2 (03:51→13:06)
[2016-09-19] MEDS: HYDROCODONE/APAP 5mg/325mg TABLET PO PRN ×3 (03:52→14:51)
[2016-09-19] MEDS: LISINOPRIL 10 MG TABLET PO SCH (08:37)
[2016-09-19] MEDS: DOCUSATE CALCIUM 240 MG CAPSULE PO SCH (08:37)
[2016-09-19 08:54] VITALS: BP 132/90; PULSE 77; RESP 18; TEMP 97.9; O2SAT 98
--- NOTE | 2016-09-19 13:19 | OB/GYN Progress Note ---
OB-PP Progress Note - General PPD3 POD:: POD3 - Subjective Date: 09/19/16 Lochia: Minimal Pain: contolled Voiding: voiding Nausea or Vomiting Present: No - Objective Vital Signs: Last Vital Signs Temp 97.9 F 09/19/16 08:00 Pulse 77 09/19/16 08:00 Resp 18 09/19/16 08:00 BP 132/90 H 09/19/16 08:00 Pulse Ox 98 09/19/16 08:00 Urine Output: good General: alert and oriented Cardiovascular: regular rate,rhythm Respiratory: non-labored Abdomen: fundus firm Incision: D/C/I Extremities: non-tender Laboratory: Laboratory Results - last 24 hr 09/18/16 09/18/16 09/19/16 17:17 23:29 05:49 Glucometer 130 222 179 09/19/16 09/19/16 08:48 11:57 Glucometer 68 54 - Assessment (1) Type 1 diabetes mellitus Comment: Endocrine managing Status: Chronic - Assessment Assessment: Repeat C/S, Tubal Ligation Comments: Infant with tachypena mom to board in. - Plan Plan: routine care
--- NOTE | 2016-09-19 13:45 | Discharge Instructions ---
Discharge Plan - Med Rec/Dispo Prescriptions: New Ibuprofen [Motrin] 800 mg PO Q8H #30 tablet Insulin Aspart [NovoLOG] 6 unit SQ DAILY@1715 vial Insulin Aspart [NovoLOG] 6 unit SQ DAILY@1145 vial Insulin Aspart [NovoLOG] 6 unit SQ DAILY@0745 vial Hydrocodone/APAP 5/325 [[place] 5/325] 1 - 2 tab PO Q4H PRN #30 tablet PRN Reason: Pain Lisinopril [Prinivil] 10 mg PO DAILY tablet Continue Insulin Aspart [NovoLOG] 10 units SQ AC15 Insulin Degludec [Tresiba Flextouch U-200] 40 units SQ HS Pnv No.95/Ferrous Fum/Folic AC [ Tablet] 1 each PO DAILY Insulin Aspart [NovoLOG] 8 unit SQ WB Discontinued Acetaminophen [Acetaminophen Extra Strength] 500 mg PO PRN - Disposition 01 Discharged Home, Self-Care
[2016-09-19] MEDS ORDERED: INSULIN ASPART 100unit/ml INJECTION SQ SCH (17:15)
[2016-09-20] MEDS ORDERED: INSULIN ASPART 100unit/ml INJECTION SQ SCH (08:00)
[2016-09-20] MEDS ORDERED: PRENATAL VITAMIN TABLET PO SCH (09:00)
== END 2016-09-19 15:00 | disposition home or self-care (01) | DRG 765 ==
LOC: MC 05:35
PROVIDERS: ADMIT Obstetrics & Gynecology; ATTEND Obstetrics & Gynecology